=== PATIENT | female | born 1950 | race Two or more races ===

== ENCOUNTER 2024-05-12 10:23 | Emergency (ER) | payer MEDICARE, MEDICAID, SELFPAY ==
[2024-05-12 10:25] VITALS: BMI 24.0
[2024-05-12 10:47] VITALS: BP 160/72; PULSE 61; RESP 18; TEMP 36.7; O2SAT 100
--- NOTE | 2024-05-12 10:52 | XR_ITS ---
Examination: Knee, left , 3 views Technique: Knee AP, lateral, oblique 3 views Date and time of exam: May 12, 2024 1058 hrs. Indications: Onset left knee pain today. Findings: Prominent osteopenia No fracture Large knee effusion with ossified joint bodies in the suprapatellar joint space Advanced patellofemoral joint narrowing Moderate osteoarthritis medial lateral joint spaces Impression: Large knee effusion with ossified joint bodies Advanced narrowing patellofemoral joint
[2024-05-12] MEDS: IBUPROFEN TAB 400 MG TABLET 800 MG PO (11:00)
[2024-05-12] MEDS: HYDROcodone/APAP 5/325 TABLET 1 TAB PO (11:00)
--- NOTE | 2024-05-12 11:44 | EDNOTE_ITS ---
<Statement entered by Sera Rios MD - 05/12/24 15:34> As co-signing physician, I was present and available for consult prn. I concur with the plan and care as documented by the midlevel provider. Lower Extremity Injury RME/HPI General Chief Complaint: Extremity Injury, Lower Stated Complaint: L KNEE PAIN/SWELLING S/P GLF Time Seen by Provider: 05/12/24 10:37 Arrival date/time: 05/12/24 10:23 74-year-old female presents to the emergency department with complaint of probable fall yesterday patient reports hitting her left knee and since then she been having pain and swelling in the left knee with pain on ambulation patient ports no other injuries Limitations: no limitations Related Data Home Medications ?Medication ?Instructions ?Recorded ?Confirmed lisinopril 10 mg tablet 10 mg PO QDAY 08/25/23 08/26/23 propranolol 60 mg tablet 60 mg PO DAILY 08/25/23 08/26/23 Previous Rx's ?Medication ?Instructions ?Recorded hydrocodone 5 mg-acetaminophen 325 1 tab PO BID PRN pain #10 tabs 05/12/24 mg tablet ibuprofen 600 mg tablet 600 mg PO Q6H #30 tabs 05/12/24 Allergies Allergy/AdvReac Type Severity Reaction Status Date / Time No Known Allergies Allergy Verified 05/12/24 10:29 Review of Systems Review of Systems Systems Reviewed: All systems reviewed, normal except as documented Constitutional Constitutional: Reports system reviewed and no additional complaints, except as documented, Denies fever(s) and Denies headache(s) Eyes Eyes: Reports system reviewed and no additional complaints, except as documented and Denies blurry vision ENT Ears, Nose, Mouth, and Throat: Reports system reviewed and no additional complaints, except as documented, Denies headache(s), Denies nasal congestion and Denies nasal discharge Cardiovascular Cardiovascular: Reports system reviewed and no additional complaints, except as documented, Denies chest pain and Denies dyspnea Respiratory Respiratory: Reports system reviewed and no additional complaints, except as documented, Denies chest congestion, Denies cough and Denies dyspnea Gastrointestinal Gastrointestinal: Reports system reviewed and no additional complaints, except as documented and Denies abdominal pain Musculoskeletal Musculoskeletal: Reports system reviewed and no additional complaints, except as documented, Reports arthralgias, Denies deformity, Reports stiffness and Denies tingling Integumentary/Breasts Skin/Breast: Reports system reviewed and no additional complaints, except as documented and Denies rash Neurologic Neurologic: Reports system reviewed and no additional complaints, except as documented, Reports as per HPI, Denies headache(s) and Denies tingling Past Medical History Past Medical History NEUROLOGIC: Negative Neurological Disorders CARDIAC: Negative Cardiac Disorders ED Exam General Limitations: Present no limitations General appearance: Present alert and in no apparent distress Head Head exam: Present atraumatic, normocephalic and normal inspection Eye Eye exam: Present normal appearance, PERRL and EOMI; Absent conjunctival injection ENT ENT exam: Present normal exam, normal oropharynx and mucous membranes moist Neck Neck exam: Present normal inspection, full ROM and trachea midline Chest Chest inspection: Present normal inspection and symmetric chest wall rise Respiratory Respiratory exam: Present normal lung sounds bilaterally Cardiovascular Cardiovascular exam: Present regular rate, normal rhythm and normal heart sounds Abdominal Exam Abdominal exam: Present soft and normal bowel sounds Extremities Exam Extremities exam: Present normal inspection, full ROM, tenderness, normal capillary refill and joint swelling; Absent pedal edema or calf tenderness Back Exam Back exam: Present normal inspection and full ROM Neurological Exam Neurological exam: Present alert, oriented X3 and CN II-XII intact Psychiatric Psychiatric exam: Present normal affect and normal mood Skin Skin exam: Present warm, dry, intact and normal color Course Quality Measures none Orders Category Date Time Status arnaldo wrap [Splint / Immobilizer] STAT Care 05/12/24 11:44 Completed XR knee LT 3V Stat Exams 05/12/24 10:52 Completed HYDROcodone*/APAP 5/325 [[place] 5/325] Med 05/12/24 10:52 Discontinued 1 tab PO X1 ONE Ibuprofen Tab [Motrin Tab] Med 05/12/24 10:52 Discontinued 800 mg PO X1 ONE Vital Signs Vital signs: Vital Signs Temperature 98.1 F 05/12/24 10:47 Pulse Rate 61 05/12/24 10:47 Respiratory Rate 18 05/12/24 10:47 Blood Pressure 160/72 H 05/12/24 10:47 Pulse Oximetry (%) 100 05/12/24 10:47 Oxygen Delivery Method Room Air 05/12/24 10:47 O2 saturation 100% room air within normal limits Extremity Injury, Lower MDM Narrative MDM Narrative:: 74-year-old female presents to the emergency department with complaint of probable fall yesterday patient reports hitting her left knee and since then she been having pain and swelling in the left knee with pain on ambulation patient ports no other injuries On exam patient is swelling of her left knee pain with movement X-ray of left knee obtained no acute fracture dislocation noted but patient does have significant swelling Arnaldo wrap applied patient directed apply ice Patient given pain medication here discharged with pain medications explained to patient if symptoms persist or worsen will need MRI for further evaluation Patient data External records reviewed:: [facility] previous records Clinical information provided by:: patient Social determinants that could affect healthcare access:: none Patient has the following chronic illnesses:: See history How is presenting disease/condition affected by chronic disease/condition?: uneffected by Evaluation data The following diagnostics were reviewed and interpreted by me:: radiology exam(s) Lab and/or radiology exams considered but not ordered:: Radiology obtain Interpretation Summary: Reviewed by me Medications / Prescriptions Medications or Prescriptions considered but not ordered:: Given Medication administrations:: Medication Administration History Discontinued Medications Hydrocodone Bitart/Acetaminophen (Hydrocodone/Apap 5/325 Tablet) 1 tab PO X1 ONE Stop: 05/12/24 10:53 Last Admin: 05/12/24 11:00 Dose: 1 tab Documented By: JUAN Ibuprofen (Ibuprofen Tab 400 Mg Tablet) 800 mg PO X1 ONE Stop: 05/12/24 10:53 Last Admin: 05/12/24 11:00 Dose: 800 mg Documented By: JUAN Given Consultations Consultation(s) initiated? (list below): No Diagnosis Extremity Injury, Lower Differential Diagnosis: other (Knee sprain, knee fracture) Most likely diagnosis given after review of the tests above:: Knee sprain Admission Indicated Admission indicated?: not indicated Admission Request Was there a request for admission?: No Disposition Plan Disposition Plan: Discharge Discharge Attestation Discharge Attestation: The patient and all family members were given an opportunity to ask questions and understood the discharge instructions. Discharge instructions specifically effects, indications for sooner follow up or return to the emergency department, and the expected course of current diagnosis. Patient condition: Stable Discharge Plan Plan Patient Disposition: HOME (Self Care) Disposition Comment: Stable Prescriptions/Referrals Prescriptions/Med Rec: New hydrocodone-acetaminophen 5-325 mg tablet 1 tab PO BID MDD 10 PRN (Reason: pain) Qty: 10 0RF ibuprofen 600 mg tablet 600 mg PO Q6H Qty: 30 0RF No Action propranolol 60 mg Tablet 60 mg PO DAILY lisinopril 10 mg Tablet 10 mg PO QDAY Referrals: No Primary/Family,Physician [Primary Care Provider] - In 1 week Problem List Clinical Impression: Acute pain of left knee Patient/Caregiver Discharge Instructions Education Materials: Knee Pain Additional Instructions: Please follow up with your primary care doctor in the next 24-48hrs for any worsening symptoms return here immediately Print Language: Brazilian Stand Alone Forms: Romina Award Info., Patient Portal Info Letter PA/MANAGER [employer] Supervising Physician PA/[employer]NAGER [employer] Supervising Physician: Dr. RIOS
[2024-05-12 12:08] VITALS: BP 142/77; PULSE 60; RESP 15; TEMP 36.4; O2SAT 100
== END 2024-05-12 12:10 | disposition home or self-care (01) ==
PROVIDERS: Emergency Provider Emergency Medicine
DX: M25.562 Pain in left knee (principal)
CPT/HCPCS: 73562; 99283; A9270

== ENCOUNTER → 2024-08-31 | Outpatient (CLI) | payer MEDICARE, MEDICAID, SELFPAY ==
--- NOTE | 2024-08-31 13:20 | XR_ITS ---
Examination: Bone densitometry Date and time of exam:August 31, 2024 1328 hours INDICATIONS: Menopause age 57, personal history osteoporosis Technique: Lumbar spine and hip total bone mineralization values of an calculated. Peak reference and age match control results have been displayed. Findings: Lumbar spine total bone mineralization is0.763 gm/cm2. This is 2.6 standard deviations below peak reference. This is 0.3 standard deviations below age-matched controls. Hip total bone mineralization is 0.575 gm/cm2 This is 2.9 standard deviations below peak reference. This is 1.3 standard deviations below age-matched controls Impression: There is osteoporosis based on lumbar spine measurements. There is osteoporosis based on hip measurements Lumbar mineralization is decreased 4.0% compared with December 02, 2017 Hip mineralization is decreased 8.8% compared with December 02, 2017
== END | disposition home or self-care (01) ==
PROVIDERS: Referring Provider Nurse Practitioner Family; Visit Provider Nurse Practitioner Family
DX: M81.0 Age-related osteoporosis without current pathological fracture (principal)
CPT/HCPCS: 77080